=== PATIENT | female | born 1980 | race Caucasian/White ===

== ENCOUNTER 2019-01-01 12:42 | Emergency (ER) | payer MEDICAID ==
[~2019-01-01] VITALS: Ht 152.4 cm; Wt 70.2 kg
[~2019-01-01 12:42] MED LIST: DOCU-144 PO; HYDR-3601 PO; HYDR-4011 PO
[2019-01-01 12:59] VITALS: BP 128/66; PULSE 72; RESP 18; Ht 152.4 cm; Wt 70.2 kg
--- NOTE | 2019-01-01 13:06 | ERD ---
ER Documentation Chief Complaint Chief Complaint Here for post op check for lap-betito Sx 1 wk ago, some post op pain HPI This is a 38-year-old female who is status post cholecystectomy performed 12/24/2018 and she is here for a wound check. She has no complaints. Pain is minimal. No fever. No nausea or vomiting. Takes Tylenol which helps with the pain. ROS All systems reviewed and are negative except as per history of present illness. Medications Home Meds Active Scripts Hydrocodone/Acetaminophen (Clark 5-325 Tablet) 1 Each Tablet, 1 TAB PO Q6H PRN for PAIN, #15 TAB Prov:BONITA MYERS PA-C 01/01/19 Docusate Sodium* (Colace*) 100 Mg Capsule, 100 MG PO BID, #20 CAP Prov:YRN BURCH NP 12/25/18 Hydrocodone Bit-Acetaminophen (Hydrocodone Bit-APAP) 5-325MG Tablet, 1 TAB PO Q6H PRN for PAIN LEVEL 6-10, #6 TAB Prov:YRN BURCH NP 12/25/18 Allergies Allergies: Coded Allergies: No Known Allergy (Unverified , 12/20/18) PMhx/Soc History of Surgery: Yes (tube tanglation 2012) Anesthesia Reaction: No Hx Neurological Disorder: No Hx Respiratory Disorders: No Hx Cardiac Disorders: No Hx Psychiatric Problems: No Hx Miscellaneous Medical Probl: No Hx Alcohol Use: No Hx Substance Use: No Hx Tobacco Use: No FmHx Family History: No diabetes Physical Exam Vitals Vital Signs Date Temp Pulse Resp B/P (MAP) Pulse Ox O2 O2 Flow FiO2 Time Delivery Rate 01/01/19 98.7 72 18 128/66 100 12:59 (86) Physical Exam Const: No acute distress Head: Atraumatic Eyes: Normal Conjunctiva ENT: Normal External Ears, Nose and Mouth. Neck: Full range of motion. No meningismus. Resp: Clear to auscultation bilaterally Cardio: Regular rate and rhythm, no murmurs Abd: Healing laparoscopic surgical scars on abdomen, no surrounding erythema or edema, no bleeding or drainage Procedures/MDM Patient here for wound check. Wound is healing appropriately with no evidence of infection. She should call surgeon's office to follow-up. Patient counseled regarding my diagnostic impression and care plan. Prior to discharge all questions answered. Pt agrees with treatment plan and understands strict return precautions. Pt is instructed to follow up with primary care provider within 24- 48 hours. Precautionary instructions provided including instructions to return to the ER if not improving or for any worsening or changing symptoms or concerns. Departure Diagnosis: Primary Impression: Encounter for wound re-check Condition: Stable Patient Instructions: Post Op Wound Check, Pain Additional Instructions: Llame al doctor ELIOT y fuentes gregg DARYL PARA DENTRO DE 1-2 CASEY.Dgale a la secretaria que nosotros le instruimos hacer esta daryl.Avise o llame si caban condicin se empeora antes de la daryl. Regresa aqui si peor o no mejor. BONITA MYERS PA-C Jan 01, 2019 13:06
== END 2019-01-01 13:15 | disposition home or self-care (01) ==
LOC: E/R 12:42
DX: Z48.01 Encounter for change or removal of surgical wound dressing (principal)
CPT/HCPCS: 99281